=== PATIENT | male | born 1995 | race Caucasian/White ===

== ENCOUNTER 2017-07-24 20:05 | Emergency (ER) | payer OTHER ==
[2017-07-24 20:21] VITALS: BP 121/70
--- NOTE | 2017-07-24 20:29 | UC ---
FLU HPI - HPI Summary HPI Summary: 21 y/o male with PMH with multiple strep infections, last ~ 3 years ago, c/o body aches, chills, sore throat. no nasal symptoms, possible mild ear pain b/l , no cough, no abdominal pains. + tactile fever at home. Was to have tonsils resected, however did not do as no recent strep. no meds. - History of Current Complaint Chief Complaint: UCRespiratory Stated Complaint: SORE THROAT Time Seen by Provider: 07/24/17 20:28 Hx Obtained From: Patient Onset/Duration: Sudden Onset, Lasting Days Severity Currently: Mild Severity Initially: Moderate Pain Intensity: 6 Pain Scale Used: 0-10 Numeric - Allergy/Home Medications Allergies/Adverse Reactions: Allergies Allergy/AdvReac Type Severity Reaction Status Date / Time No Known Allergies Allergy Verified 07/24/17 20:22 Home Medications: Home Medications Dextroamphetamine/Amphetamine [Adderall 5 mg Tablet] 1 tab PO DAILY 07/24/17 [ History Confirmed 07/24/17] [place] Carbonate TAB* 300 mg PO DAILY 07/24/17 [History Confirmed 07/24/17] Multivit-Min/Iron Fum/Folic AC [Kpnva-Znsvtpq-Ykkfbgth Tablet] 1 tab PO DAILY [History Confirmed 07/24/17] lamoTRIgine [Lamictal] 25 mg PO DAILY 07/24/17 [History Confirmed 07/24/17] PMH/Surg Hx/FS Hx/Imm Hx Previously Healthy: Yes - h/o recurrent strep in previous years - Surgical History Surgical History: Yes Surgery Procedure, Year, and Place: hernia repair, tubes in ears, wisdom teeth - Social History Alcohol Use: Occasionally Substance Use Type: None Smoking Status (MU): Never Smoked Tobacco Review of Systems Constitutional: Fever, Chills, Fatigue ENT: Sore Throat, Ear Ache Is Patient Immunocompromised?: No All Other Systems Reviewed And Are Negative: Yes Physical Exam Triage Information Reviewed: Yes Appearance: No Pain Distress, Well-Nourished, Ill-Appearing - mild Vital Signs: Initial Vital Signs Temp 102.6 F 07/24/17 20:16 Pulse 110 07/24/17 20:16 Resp 16 07/24/17 20:16 BP 121/70 07/24/17 20:16 Pulse Ox 97 07/24/17 20:16 Vital Signs Reviewed: Yes Eyes: Positive: Conjunctiva Clear ENT: Positive: Pharyngeal erythema, TMs normal - mild fluid behind TM b/l, Tonsillar swelling, Tonsillar exudate - mild, Uvula midline. Negative: TM bulging, TM dull, Sinus tenderness Neck: Positive: Supple, Enlarged Nodes @ - submand, + tender. Negative: Nuchal Rigidity Respiratory: Positive: Lungs clear, Normal breath sounds, No respiratory distress, No accessory muscle use. Negative: Rhonchi, Stridor, Wheezing, Expiration Cardiovascular: Positive: RRR, No Murmur Abdomen Description: Positive: Nontender, No Organomegaly, Soft, Bruit. Negative: CVA Tenderness (R), CVA Tenderness (L) Skin Exam: Normal Flu Course/Dx - Course Course Of Treatment: rapid strep: negative, abx given for tonsilitis. - Differential Dx/Diagnosis Differential Diagnosis/HQI/PQRI: Bronchitis Provider Diagnoses: tonsilitis Discharge - Discharge Plan Condition: Fair Disposition: HOME Prescriptions: Amoxicillin PO (*) [Amoxicillin 875 MG (*)] 875 mg PO BID #14 tab Patient Education Materials: Tonsillitis (ED) Referrals: [facility] [Primary Care Provider] - Additional Instructions: - Increase fluid intake - Follow up with IC/ Primary care within 3-5 days for re-eval - Antibiotics as directed - Do to ER with inability to swallow, increasing fever, neck pain - motrin/ tylenol as needed for pain, fever
[2017-07-24] MEDS ORDERED: Amoxicillin PO (*) 500 MG CAP PO ONE (21:14)
== END 2017-07-24 21:28 | disposition home or self-care (01) ==
LOC: UCEAST 20:05
DX: J03.90 Acute tonsillitis, unspecified (principal)
CPT/HCPCS: 87651; 99202; A9270-GY; G0463